=== PATIENT | female | born 1955 | race Caucasian/White ===

== ENCOUNTER 2018-01-05 23:21 | Outpatient (CLI) | payer BC | END 2018-01-05 23:22 | disposition critical access hospital (66) | LOC: EMS 23:21 | PROVIDERS: ATTEND Surgery | DX: R04.0 Epistaxis (principal); R03.0 Elevated blood-pressure reading, without diagnosis of hypertension | CPT/HCPCS: A0425; A0429 ==

== ENCOUNTER 2018-01-05 23:41 | Emergency (ER) | payer BC ==
--- NOTE | 2018-01-06 00:19 | ED Physician Documentation ---
PD HPI HEENT - Stated complaint Stated Complaint: BLOODY NOSE - Chief complaint Chief Complaint: Heent - History obtained from History obtained from: Patient - History of Present Illness Timing - onset: Today (initially had epistaxis 2 weeks ago but spontaneously resolved. Again this afternoon, resolved, but recurred approximately 1 hour [employer] and was larger in amount than previously. While awaiting ED evaluation, bleeding has stopped. it was left nare initially but some blood from right nare as well this evening. no trauma/injury, no URI symptoms.) Timing - details: Abrupt onset Pain level max: 0 Pain level now: 0 Location: Nose Recently seen: Not recently seen Review of Systems Ears: denies: Ear pain Nose: reports: Epistaxis. denies: Congestion, Sinus pressure / pain PD PAST MEDICAL HISTORY - Past Medical History Past Medical History: Yes Cardiovascular: Hypertension, High cholesterol Endocrine/Autoimmune: Type 2 diabetes [place]: Breast cancer - Past Surgical History Past Surgical History: Yes General: Appendectomy /[facility]: Hysterectomy HEENT: Tonsil/Adenoidectomy - Present Medications Home Medications: Ambulatory Orders Medication Instructions Recorded Confirmed Anastrozole [Arimidex] 1 mg PO DAILY 01/06/18 01/06/18 Atenolol [Tenormin] 50 mg PO DAILY 01/06/18 01/06/18 Lisinopril 40 mg PO DAILY 01/06/18 01/06/18 Simvastatin [Zocor] 60 mg PO DAILY 01/06/18 01/06/18 metFORMIN [Glucophage] 1,000 mg PO DAILY 01/06/18 01/06/18 - Allergies Allergies/Adverse Reactions: Allergies Allergy/AdvReac Type Severity Reaction Status Date / Time cephalexin [From Keflex] AdvReac Unknown Verified 01/06/18 00:01 erythromycin base AdvReac Unknown Verified 01/06/18 00:01 Penicillins AdvReac Unknown Verified 01/06/18 00:01 procaine [From Novocain] AdvReac Unknown Verified 01/06/18 00:01 - Social History Does the pt smoke?: No Smoking Status: Never smoker Does the pt drink ETOH?: No Does the pt have substance abuse?: No - Immunizations Immunizations are current?: Yes - POLST Patient has POLST: No PD ED PE NORMAL - Vitals Vital signs reviewed: Yes - General General: Alert and oriented X 3, No acute distress, Well developed/nourished - HEENT HEENT: Moist mucous membranes, Pharynx benign PD ED PE EXPANDED - HEENT HEENT: Other (no active bleeding either nare. there is trace crusted blood at rim of left nare but mucous membranes are visible; left nare mucous membranes are mildly edematous and erythematous but no evidence of source of bleeding noted. right nare mucous membranes are normal) Results - Vitals Vitals: Vital Signs - 24 hr 01/05/18 01/06/18 23:47 00:52 Temperature 37.0 C 36.6 C Heart Rate 78 69 Respiratory 16 18 Rate Blood Pressure 201/91 H 192/83 H O2 Saturation 95 98 Oxygen O2 Source Room air - Labs Labs: Laboratory Tests 01/06/18 00:05 POC Whole Bld Glucose 205 H PD MEDICAL DECISION MAKING - ED course Complexity details: considered differential, d/w patient, d/w family ED course: options discussed including cautery vs. observation in ED to monitor for further bleeding (packing not discussed, as this is not indicated at this time) . patient prefers to wait in ED and after 20 minutes, she asked to be discharged. There was no further bleeding during ED stay. Departure - Departure Disposition: 01 Home, Self Care Clinical Impression: Epistaxis Condition: Good Instructions: ED Nosebleed Discharge Date/Time: 01/06/18 00:53
[2018-01-06 00:53] VITALS: BP 192/83
== END 2018-01-06 00:53 | disposition home or self-care (01) ==
LOC: ED 23:41
DX: R04.0 Epistaxis (principal); E11.9 Type 2 diabetes mellitus without complications; I10 Essential (primary) hypertension; Z79.84 Long term (current) use of oral hypoglycemic drugs
CPT/HCPCS: 99282; 99283